=== PATIENT | female | born 2000 | race Caucasian/White ===

== ENCOUNTER → 2023-02-13 05:22 | Emergency (ER) | payer SELFPAY ==
[2023-02-13 05:22] VITALS: BP 118/78; PULSE 69; RESP 15; TEMP 36.6; O2SAT 100
[2023-02-13 05:30] LABS: Glucose Point of Care 226 mg/dl (65-105)
--- NOTE | 2023-02-14 16:56 | ED.GENADULT ---
HPI - General Adult General Chief complaint: Unspecified Stated complaint: vomiting, ankle pain Time Seen by Provider: 02/13/23 06:54 Related Data Allergies Allergy/AdvReac Type Severity Reaction Status Date / Time No Known Allergies Allergy Verified 02/13/23 05:29 Course Vital Signs Vital signs: Vital Signs Temperature 97.9 F 02/13/23 05:22 Pulse Rate 69 02/13/23 05:22 Respiratory Rate 15 02/13/23 05:22 Blood Pressure 118/78 02/13/23 05:22 Pulse Oximetry 100 02/13/23 05:22 Oxygen Delivery Room Air 02/13/23 05:22 Temperature 97.9 F 02/13/23 05:22 Pulse Rate 69 02/13/23 05:22 Respiratory Rate 15 02/13/23 05:22 Blood Pressure 118/78 02/13/23 05:22 Pulse Oximetry 100 02/13/23 05:22 Oxygen Delivery Room Air 02/13/23 05:22 Medical Decision Making Vital Signs Vital Signs: Vital Signs Temperature 97.9 F 02/13/23 05:22 Pulse Rate 69 02/13/23 05:22 Respiratory Rate 15 02/13/23 05:22 Blood Pressure 118/78 02/13/23 05:22 Pulse Oximetry 100 02/13/23 05:22 Oxygen Delivery Room Air 02/13/23 05:22 Temperature 97.9 F 02/13/23 05:22 Pulse Rate 69 02/13/23 05:22 Respiratory Rate 15 02/13/23 05:22 Blood Pressure 118/78 02/13/23 05:22 Pulse Oximetry 100 02/13/23 05:22 Oxygen Delivery Room Air 02/13/23 05:22 Lab Data Labs: Lab Results 02/13/23 Range/Units 05:27 POC Capillary Glucose 226 H (65-105) mg/dl Discharge Plan Discharge Patient Disposition: Left Without Being Sn Triaged
== END | disposition left against medical advice (07) ==
LOC: ANHED 06:57
PROVIDERS: Emergency Provider Physician Assistant
DX: S99.911A Unspecified injury of right ankle, initial encounter (principal); X50.9XXA Other and unspecified overexertion or strenuous movements or postures, initial encounter
CPT/HCPCS: 82948; 99199